=== PATIENT | male | born 1965 | race Caucasian/White ===

== ENCOUNTER → 2018-10-26 | Outpatient (CLI) | payer OTHER | LOC: M.RAD 09:17 | DX: N28.1 Cyst of kidney, acquired (principal); R31.9 Hematuria, unspecified ==

== ENCOUNTER → 2018-10-27 | Outpatient (CLI) | payer OTHER | LOC: M.CT 09:38 | DX: N32.9 Bladder disorder, unspecified (principal); R31.9 Hematuria, unspecified; R10.9 Unspecified abdominal pain ==

== ENCOUNTER → 2019-09-01 | Outpatient (CLI) | payer OTHER ==
--- NOTE | 2019-09-04 08:01 | TST ---
[place] [address] TREADMILL STRESS TEST Name: GO ZARCO Room: [facility]#: [id number] Admission: 09/01/19 Attend Phys: Ankur Benito Discharge: Date of : 65 Date of Service: 09/01/19 1711 Report #: [id number] THIS REPORT FOR: //name// CC: Dr. Yisel MILIAN INDICATION: Chest pain. CARDIAC HISTORY: Aortic valve replacement. CARDIAC RISK FACTORS: Age greater than 45, hyperlipidemia, hypertension, type 2 diabetes mellitus and former tobacco use. The patient has a family history of coronary artery disease. CARDIAC MEDICATIONS: Potassium, amlodipine, warfarin, furosemide, lisinopril/hydrochlorothiazide and atenolol. The patient exercised per standard Jay protocol for a total of 5 minutes and 24 seconds. The patient achieved 95% of the age-predicted maximum heart rate. The patient achieved an energy expenditure of 7.05 METS. The resting blood pressure was 168/96 mmHg with a resting pulse rate of 66 beats per minute. At peak exercise, the blood pressure was 240/104 mmHg with a peak stress heart rate of 158 beats per minute. In recovery, the blood pressure was 185/98 with a heart rate of 77 beats per minute. The baseline 12-lead EKG shows sinus rhythm without significant ST or T-wave abnormality. EKGs obtained during and post-exercise shows sinus rhythm and sinus tachycardia without significant ST or T-wave changes when compared to baseline. The patient did have some short 8-beat runs of nonsustained SVT in recovery at a rate of approximately 150 beats per minute. There were occasional premature ventricular contractions. The patient exhibited limited exercise tolerance. IMPRESSION: 1. Clinical response, nonischemic. 2. EKG response, nonischemic. 3. Hypertensive response to exercise. CONCLUSION: This standard Jay protocol stress test shows no clinical or EKG evidence to suggest stress-induced ischemia. [place] [address] TREADMILL STRESS TEST Name: GO ZARCO Room: [facility]#: [id number] Admission: 09/01/19 Attend Phys: Ankur Benito Discharge: Date of : 65 Date of Service: 09/01/191710 Report #: [id number] hypertensive response to exercise. Additionally, noted was a short run of nonsustained supraventricular tachycardia in the immediate recovery phase. <ELECTRONICALLY SIGNED> By: Leighton Eason MD, FACC 09/04/19 0801 10 2335 Leighton Eason MD, FACC /nt
== END ==
LOC: M.CRD 08-14 15:00
DX: R07.89 Other chest pain (principal); Z95.2 Presence of prosthetic heart valve

== ENCOUNTER 2019-10-16 12:18 | Emergency (ER) | payer OTHER ==
[~2019-10-16] VITALS: Ht 172.7 cm; Wt 104.3 kg
[2019-10-16] MEDS ORDERED: COUMADIN 10MG T10 M1 PO (12:35)
[2019-10-16] MEDS ORDERED: NORVASC10 MG PO (12:36)
[2019-10-16] MEDS ORDERED: ZESTRIL20 MG PO (12:36)
[2019-10-16] MEDS ORDERED: ATENOLOL 50MG T50 MG PO (12:36)
[2019-10-16] MEDS ORDERED: LIPITOR 40 MG T40 M1 PO (12:36)
[2019-10-16] MEDS ORDERED: GLIPIZIDE ER2.5 MG PO (12:36)
[2019-10-16] MEDS ORDERED: GLUCOPHAGE1000 MG PO (12:36)
[2019-10-16] MEDS ORDERED: FUROSEMIDE 40 M40 M1 PO (12:37)
[2019-10-16 12:59] LABS: URINE BILIRUBIN NEGATIVE (Negative); URINE BLOOD TRACE (Negative); URINE CLARITY CLEAR; URINE COLOR YELLOW; URINE GLUCOSE-RANDOM TRACE (Negative); URINE KETONES NEGATIVE (Negative); URINE LEUKOCYTES-REFLEX NEGATIVE (Negative); URINE NITRITE-REFLEX NEGATIVE (Negative); URINE PROTEIN TRACE (Negative); URINE UROBILINOGEN 0.2 E.U./dl (0.2-1.0)
[2019-10-16 13:23] LABS: ABSOLUTE BASOPHILS 0.1 thou/uL (0.0-0.2); ABSOLUTE EOSINOPHILS 0.2 thou/uL (0.0-0.7); ABSOLUTE LYMPHOCYTES 1.9 thou/uL (0.8-5.3); ABSOLUTE NEUTROPHILS 7.7 thou/uL (1.6-8.1); BASOPHILS 1.1 %; EOSINOPHILS 1.5 %; HEMATOCRIT 44.3 % (42.0-52.0); HEMOGLOBIN 15.5 gm/dL (14.0-18.0); LYMPHOCYTES 17.1 %; MCH 28.6 pg (26.0-34.0); MCV 81.6 fL (80.0-100.0); MONOCYTES 9.5 %; MPV 7.8 fl. (7.2-11.1); NUCLEATED RBCS 0 /100WBC; PLATELET COUNT* 271 thou/uL (150-400); POLYS 70.8 %; RBC 5.43 mil/uL (4.50-6.00); RDW-CV 14.1 % (10.5-14.5); WBC 10.9 thou/uL (4.0-11.0)
[2019-10-16 13:34] LABS: CALCIUM 9.1 mg/dL (8.5-10.1); CREATININE 1.1 mg/dL (0.6-1.3); POTASSIUM 4.2 mmol/L (3.5-5.1)
[2019-10-16 13:39] LABS: ALBUMIN 3.7 g/dL (3.4-5.0); TOTAL PROTEIN 7.7 g/dL (6.4-8.2)
[2019-10-16] MEDS ORDERED: LIDODERM1 EACH TOP (15:52)
[2019-10-16] MEDS ORDERED: ROBAXIN 750 MG750 MG PO (15:52)
[2019-10-16] MEDS ORDERED: NORCO 5-325 TA1 EAC1 PO (15:52)
[2019-10-16 16:16] VITALS: BP 165/99
== END 2019-10-16 16:16 | disposition home or self-care (01) ==
LOC: M.ERS 12:18
PROVIDERS: Physician Assistant
DX: R10.9 Unspecified abdominal pain (principal); I10 Essential (primary) hypertension; Z85.51 Personal history of malignant neoplasm of bladder

== ENCOUNTER 2021-03-19 19:53 | Emergency (ER) | payer OTHER ==
[~2021-03-19] VITALS: Ht 172.7 cm; Wt 106.6 kg
[~2021-03-19 19:53] MED LIST: ATENOLOL 50MG T50 MG PO; COUMADIN 10MG T10 M1 PO; FUROSEMIDE 40 M40 M1 PO; GLIPIZIDE ER2.5 MG PO; GLUCOPHAGE1000 MG PO; LIDODERM1 EACH TOP; LIPITOR 40 MG T40 M1 PO; NORCO 5-325 TA1 EAC1 PO; NORVASC10 MG PO; ROBAXIN 750 MG750 MG PO; ZESTRIL20 MG PO
[2021-03-19 20:20] LABS: ABSOLUTE BASOPHILS 0.1 thou/uL (0.0-0.2); ABSOLUTE EOSINOPHILS 0.2 thou/uL (0.0-0.7); ABSOLUTE LYMPHOCYTES 1.9 thou/uL (0.8-5.3); ABSOLUTE MONOCYTES 0.6 thou/uL (0.0-1.2); ABSOLUTE NEUTROPHILS 5.4 thou/uL (1.6-8.1); EOSINOPHILS 2.3 %; HEMATOCRIT 43.6 % (42.0-52.0); HEMOGLOBIN 14.9 gm/dL (14.0-18.0); LYMPHOCYTES 23.2 %; MCH 27.6 pg (26.0-34.0); MCHC 34.2 g/dL (28.0-37.0); MCV 80.7 fL (80.0-100.0); MONOCYTES 7.4 %; MPV 7.6 fl. (7.2-11.1); NUCLEATED RBCS 0 /100WBC; PLATELET COUNT* 211 thou/uL (150-400); POLYS 66.1 %; RBC 5.41 mil/uL (4.50-6.00); RDW-CV 14.3 % (10.5-14.5); WBC 8.1 thou/uL (4.0-11.0)
[2021-03-19 20:29] LABS: CALCIUM 8.7 mg/dL (8.5-10.1); POTASSIUM 3.8 mmol/L (3.5-5.1)
[2021-03-19 20:33] LABS: MAGNESIUM 1.9 mg/dL (1.8-2.4); TOTAL BILIRUBIN 0.9 mg/dL (<0.1-1.0); TOTAL PROTEIN 7.8 g/dL (6.4-8.2)
[2021-03-19 21:48] LABS: URINE BILIRUBIN NEGATIVE (Negative); URINE BLOOD TRACE (Negative); URINE CLARITY CLEAR; URINE COLOR YELLOW; URINE GLUCOSE-RANDOM NEGATIVE (Negative); URINE KETONES NEGATIVE (Negative); URINE LEUKOCYTES-REFLEX NEGATIVE (Negative); URINE NITRITE-REFLEX NEGATIVE (Negative); URINE PROTEIN NEGATIVE (Negative); URINE UROBILINOGEN 0.2 E.U./dl (0.2-1.0)
[2021-03-19] MEDS ORDERED: FLAGYL500 M1 PO (22:23)
[2021-03-19] MEDS ORDERED: HYDROCODON-ACE1 EAC8 PO (22:23)
[2021-03-19 22:43] VITALS: BP 168/93
--- NOTE | 2021-03-20 14:58 | EKG ---
[place] [address] ELECTROCARDIOGRAM REPORT Name: GO ZARCO Room: [facility]#: [id number] Admission: 03/19/21 Attend Phys: Discharge: 03/19/21 Date of : 65 Date of Service: 03/19/212002 Report #: [id number] THIS REPORT FOR: //name// [facility] [place] ED Test Date: 2021-03-19 Test Time: 20:03:02 Pat Name: GO ZARCO Department: Room: Gender: Vendor Relationship Manager: : 1965 Requested By: Tari Lee Order Number: [id number] Elsa MD: William Morillo Measurements Intervals [place] Rate: 61 P: 95 ND: 129 QRS: 44 QRSD: 103 T: 84 QT: 431 QTc: 434 Interpretive Statements Sinus rhythm Nonspecific T abnormalities, lateral leads Baseline wander in lead(s) V2 No previous ECG available for comparison Electronically Signed On 03-20-2021 14:58:30 CDT by William Morillo [email or web address] <ELECTRONICALLY SIGNED> By: William Morillo MD, [facility] 03/20/21 1458 02 02 William Morillo MD, [facility] /EPI
== END 2021-03-19 22:44 | disposition home or self-care (01) ==
LOC: M.ERS 19:53
PROVIDERS: Emergency Medicine
DX: R19.7 Diarrhea, unspecified (principal); R10.32 Left lower quadrant pain; R11.2 Nausea with vomiting, unspecified; I10 Essential (primary) hypertension; Z79.01 Long term (current) use of anticoagulants; Z79.899 Other long term (current) drug therapy; Z85.51 Personal history of malignant neoplasm of bladder